=== PATIENT | male | born 1975 | race Caucasian/White ===

== ENCOUNTER 2019-12-12 11:46 | Day surgery (SDC) | payer BC ==
[~2019-12-12] VITALS: Ht 175.3 cm; Wt 98.8 kg
--- NOTE | 2019-12-12 15:52 | NUR ---
12/12/19 1552 Elsie De PT RX'D WITH PAIN MEDS, SEE EMAR, PAIN DECREASED AFTER MEDICATION.
== END 2019-12-12 16:10 | disposition home or self-care (01) ==
LOC: ORSCSDS 11:46
PROVIDERS: Podiatrist Foot & Ankle Surgery
PROC: 0MQR0ZZ Repair Left Ankle Bursa and Ligament, Open Approach (ICD-10-PCS; principal; 2019-12-12 13:00)
PROC: 0QSK04Z Reposition Left Fibula with Internal Fixation Device, Open Approach (ICD-10-PCS; principal; 2019-12-12 13:00)
DX: S82.62XA Displaced fracture of lateral malleolus of left fibula, initial encounter for closed fracture (principal); S93.422A Sprain of deltoid ligament of left ankle, initial encounter
CPT/HCPCS: A9270-GY; C1713; J0171; J0690; J1100; J2250; J2405; J2704; J3010; J7120

== ENCOUNTER 2023-02-28 08:20 | Day surgery (SDC) | payer BC ==
[~2023-02-28] VITALS: Ht 177.8 cm; Wt 101.4 kg
[2023-02-28] MEDS ORDERED: ALLO100 (08:43)
[2023-02-28 10:08] VITALS: BP 121/87
== END 2023-02-28 10:08 | disposition home or self-care (01) ==
LOC: ORSCSDS 08:20
PROVIDERS: Internal Medicine Gastroenterology
PROC: 0DBN8ZX Excision of Sigmoid Colon, Via Natural or Artificial Opening Endoscopic, Diagnostic (ICD-10-PCS; principal; 2023-02-28 09:30)
DX: Z12.11 Encounter for screening for malignant neoplasm of colon (principal); Z86.010 Personal history of colon polyps; Z80.0 Family history of malignant neoplasm of digestive organs; Z83.719 Family history of colon polyps, unspecified; K63.5 Polyp of colon
CPT/HCPCS: 88305; J2250; J2704; J7120